=== PATIENT | male | born 1940 | race African-American/Black ===

== ENCOUNTER 2017-11-07 23:10 | Emergency (ER) | payer MEDICARE ==
[~2017-11-07] VITALS: Ht 182.9 cm; Wt 118.2 kg
[~2017-11-07 23:10] MED LIST: DUTA0.5C2 PO; ECOTRIN PO; LOP25 GT; OMEP40CA34 PO; SEE MED SHEET; TAMS-11 PO
[2017-11-07] MEDS ORDERED: KETOROLAC 30MG/ML VIAL IV STA (23:19)
[2017-11-07 23:58] LABS: HEMATOCRIT. 51.6 % (42.0-52.0); HEMOGLOBIN. 17.1 g/dL (14.0-18.0); MEAN CORPUSCULAR HEMOGLOBIN 30.1 pg (28.0-32.0); MEAN CORPUSCULAR VOLUME 90.7 fL (80.0-94.0); RED BLOOD CELL COUNT 5.69 mill/uL (4.7-6.1); RED CELL DISTRIBUTION WIDTH 14.5 % (11.6-14.6)
[2017-11-08 00:04] LABS: CHLORIDE 99 mEq/L (98-107)
[2017-11-08 00:05] LABS: INR 1.1; PROTHROMBIN TIME 11.3 sec (9.4-11.6)
[2017-11-08] MEDS ORDERED: SODIUM CHLORIDE 0.9% 1,000 ML IV ONE (00:15)
[2017-11-08 01:21] LABS: MEAN PLATELET VOLUME 7.7 fl (7.4-10.4); PLATELET 131 x1000/uL (130-400)
[2017-11-08 01:39] LABS: ATYPICAL LYMPHOCYTES 1; PLATELET ESTIMATE NORMAL
[2017-11-08] MEDS ORDERED: VANCOMYCIN 1 G PREMIX 200 ML IV SCH (02:00)
[2017-11-08 02:15] VITALS: BP 115/62
[2017-11-08 03:30] LABS: CLARITY URINE CLOUDY (CLEAR); COLOR URINE ORANGE (YELLOW); KETONES URINE TRACE (NEGATIVE); LEUKOCYTE ESTERASE URINE 1+ (NEGATIVE); NITRITE URINE NEGATIVE (NEGATIVE); OCCULT BLOOD URINE NEGATIVE (NEGATIVE); PROTEIN URINE TRACE (NEGATIVE); SPECIFIC GRAVITY URINE 1.022 (1.005-1.030)
[2017-11-10] MEDS ORDERED: NEBI5TAB3 PO (19:17)
[2017-11-10] MEDS ORDERED: [UNRECOGNIZED DRUG - OTHER] PO (19:17)
== END 2017-11-08 08:51 | disposition home or self-care (01) ==
LOC: ER 11-08 08:30
DX: L03.115 Cellulitis of right lower limb (principal); E87.2 Acidosis; I10 Essential (primary) hypertension; Z87.891 Personal history of nicotine dependence; Z79.899 Other long term (current) drug therapy
CPT/HCPCS: 36415; 71045; 80053; 81003; 82962; 83605; 84484; 85025; 85610; 87040; 93005; 93970; 96361; 96365; 96366; 96375; 99285; J1885; J3370; J7030

== ENCOUNTER 2021-08-13 15:31 | Inpatient (IN) | payer OTHER, MEDICARE ==
[~2021-08-13] VITALS: Ht 188 cm; Wt 93.4 kg
[~2021-08-13 15:31] MED LIST changes: -DUTA0.5C2 PO; -LOP25 GT; +NEBI5TAB3 PO; -OMEP40CA34 PO; -SEE MED SHEET; -TAMS-11 PO
[2021-08-13] MEDS ORDERED: SODIUM CHLORIDE 0.9% 1,000 ML IV ONE (16:45)
[2021-08-13] MEDS ORDERED: PIPERACILLIN/TAZOBACTAM 3.375GM/50ML PREMIX IV ONE (16:45)
[2021-08-13] MEDS ORDERED: PIPERACILLIN/TAZ 3.375G PREMIX 50 ML IV NR (16:45)
[2021-08-13 16:48] LABS: HEMOGLOBIN. 10.4 g/dL (14.0-18.0); MEAN CORPUSCULAR HEMOGLOBIN 21.6 pg (28.0-32.0); MEAN CORPUSCULAR VOLUME 68.6 fL (80.0-94.0); MEAN PLATELET VOLUME 6.7 fl (7.4-10.4); PLATELET 397 x1000/uL (130-400); RED BLOOD CELL COUNT 4.81 mill/uL (4.7-6.1); RED CELL DISTRIBUTION WIDTH 18.2 % (11.6-14.6)
[2021-08-13 16:53] LABS: CHLORIDE 103 mEq/L (98-107)
[2021-08-13 17:38] LABS: PLATELET ESTIMATE NORMAL
[2021-08-13] MEDS: SODIUM CHLORIDE 0.9% 1,000 ML IV SCH (17:39)
[2021-08-13] MEDS ORDERED: SODIUM CHLORIDE 0.9% 1,700 ML IV NR (18:00)
[2021-08-13] MEDS ORDERED: DOCUSATE SODIUM 100MG CAPSULE PO PRN (20:00)
[2021-08-13] MEDS ORDERED: DIPHENHYDRAMINE 50MG/ML VIAL IV PRN (20:00)
[2021-08-13] MEDS ORDERED: CLONIDINE 0.1MG TABLET PO PRN (20:00)
[2021-08-13] MEDS ORDERED: GUAIFENESIN 200MG/10ML SUGAR FREE UDC PO PRN (20:00)
[2021-08-13] MEDS ORDERED: ONDANSETRON HCL 4MG/2ML INJ IV PRN (20:00)
[2021-08-13] MEDS ORDERED: ACETAMINOPHEN 325MG TABLET PO PRN (20:00)
[2021-08-13] MEDS ORDERED: MAGNESIUM/ALUMINUM HYDROXIDE/SIMETHICONE 30ML UDC PO PRN (20:00)
[2021-08-13] MEDS ORDERED: MORPHINE SULFATE 2 MG/ML CPJ (NOT FOR IM USE) IV PRN (20:00)
[2021-08-13] MEDS ORDERED: IPRATROPIUM/ALBUTEROL 0.5-3(2.5)MG/3ML NEB HHN PRN (20:00)
[2021-08-13] MEDS ORDERED: NALOXONE HCL 0.4MG/ML VIAL IV PRN (20:15)
[2021-08-13] MEDS ORDERED: IOHEXOL-350 100 ML BOTTLE ONE (21:22)
[2021-08-13 22:05] LABS: CLARITY URINE TURBID (CLEAR); COLOR URINE DARK YELLOW (YELLOW); KETONES URINE NEGATIVE (NEGATIVE); LEUKOCYTE ESTERASE URINE 3+ (NEGATIVE); NITRITE URINE NEGATIVE (NEGATIVE); OCCULT BLOOD URINE 1+ (NEGATIVE); PH URINE 5.5 (4.5-8.0); PROTEIN URINE 2+ (NEGATIVE); SPECIFIC GRAVITY URINE 1.019 (1.005-1.030)
[2021-08-13 22:16] VITALS: BP 109/67
[2021-08-13 22:25] VITALS: BP 109/67
[2021-08-14] VITALS (7 sets, daily range): BP systolic 106–136; BP diastolic 41–82
[2021-08-14] MEDS: SODIUM CHLORIDE 0.9% 1,000 ML IV SCH ×3 (00:41→17:43)
[2021-08-14 08:49] LABS: HEMATOCRIT. 23.2 % (42.0-52.0); HEMOGLOBIN. 7.3 g/dL (14.0-18.0); MEAN CORPUSCULAR HEMOGLOBIN 21.7 pg (28.0-32.0); MEAN CORPUSCULAR VOLUME 69.4 fL (80.0-94.0); MEAN PLATELET VOLUME 6.5 fl (7.4-10.4); PLATELET 223 x1000/uL (130-400); RED BLOOD CELL COUNT 3.34 mill/uL (4.7-6.1); RED CELL DISTRIBUTION WIDTH 18.4 % (11.6-14.6)
[2021-08-14 09:03] LABS: CHLORIDE 122 mEq/L (98-107)
[2021-08-14 09:14] LABS: CREATINE KINASE 27 IU/L (39-308)
[2021-08-14 09:15] LABS: LDL CHOLESTEROL 36 mg/dL (5-100)
[2021-08-14 09:16] LABS: HDL CHOLESTEROL 17 mg/dL (40-59)
[2021-08-14] MEDS ORDERED: GADOTERATE MEGLUMINE 5 MMOL/10 ML VIAL IV ONE (13:04)
[2021-08-14 13:59] LABS: PLATELET ESTIMATE NORMAL
[2021-08-14] MEDS: LEVOFLOXACIN 500MG PREMIX 100 ML IV SCH (17:42)
[2021-08-15] VITALS: BP 103/61
[2021-08-15] MEDS: SODIUM CHLORIDE 0.9% 1,000 ML IV SCH ×3 (01:02→17:21)
[2021-08-15 04:00] VITALS: BP 106/56
[2021-08-15 06:36] LABS: CHLORIDE 113 mEq/L (98-107)
[2021-08-15 06:52] LABS: BASOPHILS % 0.2 % (0.0-2.0); EOSINOPHILS % 2.3 % (0.0-5.0); LYMPHOCYTES % 8.3 % (20.0-50.0); MEAN CORPUSCULAR HEMOGLOBIN 21.4 pg (28.0-32.0); MEAN CORPUSCULAR VOLUME 70.8 fL (80.0-94.0); MEAN PLATELET VOLUME 6.8 fl (7.4-10.4); MONOCYTES % 13.6 % (2.0-8.0); NEUTROPHILS % 75.6 % (40.0-76.0); PLATELET 232 x1000/uL (130-400); RED BLOOD CELL COUNT 4.14 mill/uL (4.7-6.1); RED CELL DISTRIBUTION WIDTH 18.7 % (11.6-14.6)
[2021-08-15 08:00] VITALS: BP 122/64
[2021-08-15 08:03] LABS: HEMATOCRIT. 29.3 % (42.0-52.0); HEMOGLOBIN. 8.9 g/dL (14.0-18.0)
[2021-08-15 11:20] LABS: BG BASE EXCESS -2.3 mmol/L (-2.0-2.0); BG CARBOXYHEMOGLOBIN 0.4 % (0.5-1.5); BG DEOXYHEMOGLOBIN 1.2 % (0.0-5.0); BG FRACTION INSPIRED OXYGEN 21; BG HCO3 ACT 21.8 mmol/L (22.0-26.0); BG METHEMOGLOBIN 0.5 % (0.0-1.5); BG OXYGEN SATURATION 98.8 % (92.0-98.5); BG OXYHEMOGLOBIN 97.9 % (94.0-97.0); BG PCO2 34.5 mmHg (35.0-45.0); BG PH 7.419 (7.350-7.450); BG PO2 144.3 mmHg (75.0-100.0); BG SAMPLE SITE RIGHT RADIAL; BG TOTAL HEMOGLOBIN 8.6 g/dL (12.0-18.0); BG VENT MODE ROOM AIR
[2021-08-15 12:00] VITALS: BP 147/64
[2021-08-15] MEDS ORDERED: IPRATROPIUM/ALBUTEROL 0.5-3(2.5)MG/3ML NEB HHN PRN (13:00)
[2021-08-15 16:00] VITALS: BP 140/77
[2021-08-15] MEDS: LEVOFLOXACIN 500MG PREMIX 100 ML IV SCH (17:22)
[2021-08-15 20:00] VITALS: BP 131/62
[2021-08-15] MEDS: ACETAMINOPHEN 325MG TABLET PO PRN (20:54)
[2021-08-15] MEDS: IPRATROPIUM/ALBUTEROL 0.5-3(2.5)MG/3ML NEB HHN SCH (21:17)
[2021-08-16] VITALS: BP 153/63
[2021-08-16] MEDS: IPRATROPIUM/ALBUTEROL 0.5-3(2.5)MG/3ML NEB HHN SCH ×4 (02:35→18:00)
[2021-08-16] MEDS: SODIUM CHLORIDE 0.9% 1,000 ML IV SCH ×3 (03:29→17:33)
[2021-08-16 04:00] VITALS: BP 128/75
[2021-08-16 07:31] LABS: CHLORIDE 113 mEq/L (98-107)
[2021-08-16 07:38] LABS: BASOPHILS % 0.4 % (0.0-2.0); EOSINOPHILS % 3.3 % (0.0-5.0); HEMATOCRIT. 26.6 % (42.0-52.0); HEMOGLOBIN. 8.3 g/dL (14.0-18.0); LYMPHOCYTES % 9.6 % (20.0-50.0); MEAN CORPUSCULAR HEMOGLOBIN 21.7 pg (28.0-32.0); MEAN CORPUSCULAR VOLUME 69.4 fL (80.0-94.0); MEAN PLATELET VOLUME 7.3 fl (7.4-10.4); MONOCYTES % 11.7 % (2.0-8.0); PLATELET 249 x1000/uL (130-400); RED BLOOD CELL COUNT 3.83 mill/uL (4.7-6.1); RED CELL DISTRIBUTION WIDTH 18.2 % (11.6-14.6)
[2021-08-16 08:00] VITALS: BP 127/70
[2021-08-16 12:00] VITALS: BP 131/72
[2021-08-16 16:00] VITALS: BP 132/66
[2021-08-16] MEDS: LEVOFLOXACIN 500MG PREMIX 100 ML IV SCH (17:48)
[2021-08-16 20:00] VITALS: BP 140/65
[2021-08-17] VITALS: BP 118/62
[2021-08-17] MEDS: SODIUM CHLORIDE 0.9% 1,000 ML IV SCH ×2 (00:45→08:50)
[2021-08-17 04:00] VITALS: BP 123/73
[2021-08-17 08:00] VITALS: BP 119/65
[2021-08-17] MEDS: IPRATROPIUM/ALBUTEROL 0.5-3(2.5)MG/3ML NEB HHN SCH ×3 (09:23→13:17)
[2021-08-17] MEDS: ACETAMINOPHEN 325MG TABLET PO PRN (09:51)
[2021-08-17 11:44] LABS: BASOPHILS % 0.5 % (0.0-2.0); EOSINOPHILS % 3.3 % (0.0-5.0); HEMATOCRIT. 25.6 % (42.0-52.0); MEAN CORPUSCULAR HEMOGLOBIN 21.6 pg (28.0-32.0); MEAN CORPUSCULAR VOLUME 69.1 fL (80.0-94.0); MEAN PLATELET VOLUME 6.5 fl (7.4-10.4); MONOCYTES % 12.6 % (2.0-8.0); NEUTROPHILS % 73.6 % (40.0-76.0); PLATELET 266 x1000/uL (130-400); RED BLOOD CELL COUNT 3.71 mill/uL (4.7-6.1); RED CELL DISTRIBUTION WIDTH 18.2 % (11.6-14.6)
[2021-08-17 11:53] LABS: CHLORIDE 113 mEq/L (98-107)
[2021-08-17 12:00] VITALS: BP 118/78
[2021-08-17] MEDS ORDERED: LEVO500T89 MT (12:45)
[2021-08-17 13:40] VITALS: BP 118/78
[2021-08-17 16:00] VITALS: BP 139/65
[2021-08-17] MEDS ORDERED: LEVOFLOXACIN 500MG TABLET PO SCH (18:00)
== END 2021-08-17 18:18 | disposition home health service (06) | DRG 871 ==
LOC: ER 15:31 → 7EST 18:35 → EDBEDREQ 19:07 → EDBEDREQTM 19:07 → ENRESERV 20:30
PROVIDERS: ADMIT Family Medicine Adult Medicine; ATTEND Family Medicine Adult Medicine
DX: A41.9 Sepsis, unspecified organism (principal); E43 Unspecified severe protein-calorie malnutrition; G92.8 Other toxic encephalopathy; J69.0 Pneumonitis due to inhalation of food and vomit; E87.0 Hyperosmolality and hypernatremia; I42.9 Cardiomyopathy, unspecified; I50.32 Chronic diastolic (congestive) heart failure; N17.9 Acute kidney failure, unspecified; N39.0 Urinary tract infection, site not specified; I31.3 Pericardial effusion (noninflammatory); I48.92 Unspecified atrial flutter; E78.5 Hyperlipidemia, unspecified; E83.42 Hypomagnesemia; E87.6 Hypokalemia; E86.1 Hypovolemia; E86.0 Dehydration; I44.7 Left bundle-branch block, unspecified; J43.2 Centrilobular emphysema; E04.2 Nontoxic multinodular goiter; K40.90 Unilateral inguinal hernia, without obstruction or gangrene, not specified as recurrent; K82.8 Other specified diseases of gallbladder; N21.0 Calculus in bladder; Z20.822 Contact with and (suspected) exposure to COVID-19; I25.10 Atherosclerotic heart disease of native coronary artery without angina pectoris; N28.89 Other specified disorders of kidney and ureter; D50.9 Iron deficiency anemia, unspecified; I27.20 Pulmonary hypertension, unspecified; I11.0 Hypertensive heart disease with heart failure; R65.20 Severe sepsis without septic shock; Z87.891 Personal history of nicotine dependence; Z99.3 Dependence on wheelchair; Z68.26 Body mass index [BMI] 26.0-26.9, adult
CPT/HCPCS: 36415; 36600; 71045; 71275; 74177; 74183; 76770; 80048; 80053; 80061; 81003; 82375; 82550; 82805; 83605; 83735; 83880; 84145; 84443; 84484; 85025; 85379; 87426; 93005; 93306; 93970; 94640; 97110; 97162; 97166; 97535; 99291; A9577; J1956; J2543; J7030; Q9967

== ENCOUNTER 2021-08-22 16:02 | Inpatient (IN) | payer OTHER, MEDICARE ==
[~2021-08-22] VITALS: Ht 188 cm; Wt 98.5 kg
[~2021-08-22 16:02] MED LIST changes: +LEVO500T89 MT
[2021-08-22 17:12] LABS: HEMATOCRIT. 33.4 % (42.0-52.0); HEMOGLOBIN. 10.2 g/dL (14.0-18.0); MEAN CORPUSCULAR HEMOGLOBIN 21.4 pg (28.0-32.0); MEAN PLATELET VOLUME 7.1 fl (7.4-10.4); PLATELET 448 x1000/uL (130-400); RED BLOOD CELL COUNT 4.78 mill/uL (4.7-6.1); RED CELL DISTRIBUTION WIDTH 19.6 % (11.6-14.6)
[2021-08-22 17:20] LABS: CHLORIDE 105 mEq/L (98-107)
[2021-08-22 17:35] LABS: PLATELET ESTIMATE INCREASED
[2021-08-22] MEDS ORDERED: METHYLPREDNISOLONE SOD SUCC 125 MG/2 ML VIAL IV STA (17:57)
[2021-08-22] MEDS ORDERED: ALBUTEROL (0.083%) 2.5MG/3ML NEB HHN STA (17:57)
[2021-08-22] MEDS ORDERED: IPRATROPIUM BROMIDE (0.02%) 0.5MG/2.5ML NEB HHN STA (17:57)
[2021-08-22] MEDS ORDERED: MAGNESIUM 2 G PREMIX 50 ML IV ONE (18:00)
[2021-08-22] MEDS ORDERED: SODIUM CHLORIDE 0.9% 1,000 ML IV ONE (18:45)
[2021-08-22] MEDS ORDERED: CLONIDINE 0.1MG TABLET PO PRN (20:30)
[2021-08-22] MEDS ORDERED: DOCUSATE SODIUM 100MG CAPSULE PO PRN (20:30)
[2021-08-22] MEDS ORDERED: MAGNESIUM/ALUMINUM HYDROXIDE/SIMETHICONE 30ML UDC PO PRN (20:30)
[2021-08-22] MEDS ORDERED: GUAIFENESIN 200MG/10ML SUGAR FREE UDC PO PRN (20:30)
[2021-08-22 21:18] LABS: BG BASE EXCESS -1.1 mmol/L (-2.0-2.0); BG CARBOXYHEMOGLOBIN 0.2 % (0.5-1.5); BG DEOXYHEMOGLOBIN 3.4 % (0.0-5.0); BG FRACTION INSPIRED OXYGEN 28; BG METHEMOGLOBIN 0.3 % (0.0-1.5); BG OXYGEN SATURATION 96.6 % (92.0-98.5); BG OXYHEMOGLOBIN 96.1 % (94.0-97.0); BG PCO2 35.9 mmHg (35.0-45.0); BG PH 7.424 (7.350-7.450); BG PO2 95.1 mmHg (75.0-100.0); BG SAMPLE SITE LEFT RADIAL; BG TOTAL HEMOGLOBIN 9.4 g/dL (12.0-18.0); BG VENT MODE NASAL CANNULA
[2021-08-22] MEDS: ENOXAPARIN 40MG/0.4ML SYR SUBCUT SCH (21:57)
[2021-08-23] VITALS (8 sets, daily range): BP systolic 100–138; BP diastolic 52–77
[2021-08-23] MEDS ORDERED: IPRATROPIUM/ALBUTEROL 0.5-3(2.5)MG/3ML NEB HHN PRN (11:00)
[2021-08-23] MEDS: IPRATROPIUM/ALBUTEROL 0.5-3(2.5)MG/3ML NEB HHN SCH ×3 (13:36→21:41)
[2021-08-23] MEDS: BUDESONIDE 0.5MG/2ML NEB HHN SCH ×2 (13:36→21:41)
[2021-08-23 16:14] LABS: BASOPHILS % 0.5 % (0.0-2.0); HEMATOCRIT. 28.1 % (42.0-52.0); HEMOGLOBIN. 8.7 g/dL (14.0-18.0); LYMPHOCYTES % 7.3 % (20.0-50.0); MEAN CORPUSCULAR HEMOGLOBIN 21.3 pg (28.0-32.0); MEAN CORPUSCULAR VOLUME 68.8 fL (80.0-94.0); MONOCYTES % 9.4 % (2.0-8.0); NEUTROPHILS % 82.8 % (40.0-76.0); PLATELET 324 x1000/uL (130-400); RED BLOOD CELL COUNT 4.08 mill/uL (4.7-6.1); RED CELL DISTRIBUTION WIDTH 19.1 % (11.6-14.6)
[2021-08-23 16:18] LABS: CHLORIDE 108 mEq/L (98-107)
[2021-08-23 16:26] LABS: LDL CHOLESTEROL 62 mg/dL (5-100)
[2021-08-23 16:27] LABS: CREATINE KINASE < 7 IU/L (39-308)
[2021-08-23 16:28] LABS: HDL CHOLESTEROL 27 mg/dL (40-59)
[2021-08-23 17:27] LABS: PLATELET ESTIMATE NORMAL
[2021-08-23] MEDS: ENOXAPARIN 40MG/0.4ML SYR SUBCUT SCH (21:26)
[2021-08-24] VITALS (7 sets, daily range): BP systolic 106–124; BP diastolic 52–67
[2021-08-24] MEDS: IPRATROPIUM/ALBUTEROL 0.5-3(2.5)MG/3ML NEB HHN SCH ×3 (08:36→20:19)
[2021-08-24] MEDS: BUDESONIDE 0.5MG/2ML NEB HHN SCH ×2 (08:37→20:19)
[2021-08-24] MEDS: MULTIVITAMINS,THER W-MINERALS TABLET PO SCH (09:52)
[2021-08-24] MEDS: ENOXAPARIN 40MG/0.4ML SYR SUBCUT SCH (20:30)
[2021-08-25] VITALS: BP 118/51
[2021-08-25 04:00] VITALS: BP 120/62
[2021-08-25] MEDS: IPRATROPIUM/ALBUTEROL 0.5-3(2.5)MG/3ML NEB HHN SCH ×3 (07:21→18:00)
[2021-08-25] MEDS: BUDESONIDE 0.5MG/2ML NEB HHN SCH ×2 (07:21→21:00)
[2021-08-25 08:05] VITALS: BP 125/52
[2021-08-25] MEDS: MULTIVITAMINS,THER W-MINERALS TABLET PO SCH (08:27)
[2021-08-25 09:02] LABS: BASOPHILS % 0.3 % (0.0-2.0); EOSINOPHILS % 1.4 % (0.0-5.0); HEMATOCRIT. 28.3 % (42.0-52.0); HEMOGLOBIN. 8.7 g/dL (14.0-18.0); LYMPHOCYTES % 12.7 % (20.0-50.0); MEAN CORPUSCULAR HEMOGLOBIN 21.1 pg (28.0-32.0); MEAN CORPUSCULAR VOLUME 68.4 fL (80.0-94.0); MEAN PLATELET VOLUME 7.4 fl (7.4-10.4); MONOCYTES % 12.2 % (2.0-8.0); NEUTROPHILS % 73.4 % (40.0-76.0); PLATELET 377 x1000/uL (130-400); RED BLOOD CELL COUNT 4.13 mill/uL (4.7-6.1); RED CELL DISTRIBUTION WIDTH 19.5 % (11.6-14.6)
[2021-08-25 09:14] LABS: CHLORIDE 109 mEq/L (98-107)
[2021-08-25 12:00] VITALS: BP 138/60
[2021-08-25 16:00] VITALS: BP 122/66
[2021-08-25 20:00] VITALS: BP 126/61
[2021-08-25] MEDS: ENOXAPARIN 40MG/0.4ML SYR SUBCUT SCH (21:49)
[2021-08-26] VITALS: BP 113/62
[2021-08-26 04:00] VITALS: BP 129/63
[2021-08-26 08:00] VITALS: BP 126/62
[2021-08-26] MEDS: MULTIVITAMINS,THER W-MINERALS TABLET PO SCH (08:25)
[2021-08-26 09:06] LABS: IMMUNOGLOBULIN A 442 mg/dL (61-437); IMMUNOGLOBULIN G 1618 mg/dL (603-1613); IMMUNOGLOBULIN M 41 mg/dL (15-143)
[2021-08-26] MEDS: IPRATROPIUM/ALBUTEROL 0.5-3(2.5)MG/3ML NEB HHN SCH ×2 (09:44)
[2021-08-26 12:00] VITALS: BP 144/55
[2021-08-26 12:20] VITALS: BP 123/64
== END 2021-08-26 14:25 | disposition home health service (06) | DRG 70 ==
LOC: ER 16:02 → 8WST 19:46 → ENRESERV 23:36
PROVIDERS: ADMIT Family Medicine Adult Medicine; ATTEND Family Medicine Adult Medicine
PROC: 5A09357 Assistance with Respiratory Ventilation, Less than 24 Consecutive Hours, Continuous Positive Airway Pressure (ICD-10-PCS; principal; 2021-08-22)
DX: G93.41 Metabolic encephalopathy (principal); J96.01 Acute respiratory failure with hypoxia; E43 Unspecified severe protein-calorie malnutrition; I31.3 Pericardial effusion (noninflammatory); J98.11 Atelectasis; D50.9 Iron deficiency anemia, unspecified; I11.0 Hypertensive heart disease with heart failure; I50.9 Heart failure, unspecified; R00.0 Tachycardia, unspecified; I44.7 Left bundle-branch block, unspecified; I95.9 Hypotension, unspecified; E78.5 Hyperlipidemia, unspecified; K21.9 Gastro-esophageal reflux disease without esophagitis; N28.89 Other specified disorders of kidney and ureter; I25.10 Atherosclerotic heart disease of native coronary artery without angina pectoris; I27.20 Pulmonary hypertension, unspecified; J43.9 Emphysema, unspecified; Z86.73 Personal history of transient ischemic attack (TIA), and cerebral infarction without residual deficits; Z87.891 Personal history of nicotine dependence; Z68.27 Body mass index [BMI] 27.0-27.9, adult; Z79.899 Other long term (current) drug therapy
CPT/HCPCS: 36415; 36600; 71045; 80048; 80053; 80061; 80307; 82140; 82375; 82550; 82784; 82805; 82962; 83605; 83735; 83880; 84134; 84443; 84484; 85025; 86334; 93005; 94640; 94660; 97162; 99285; J1650; J2930; J3475; J7030; J7626